=== PATIENT | female | born 1980 | race Caucasian/White ===

== ENCOUNTER 2017-06-16 18:06 | Emergency (ER) | payer MEDICAID ==
[~2017-06-16] VITALS: Ht 170.2 cm; Wt 90.7 kg
[2017-06-16 18:46] VITALS: Ht 170.2 cm; Wt 90.7 kg
[2017-06-16 21:12] VITALS: BP 113/68
== END 2017-06-16 21:58 | disposition home or self-care (01) ==
LOC: ED 18:06
DX: J20.9 Acute bronchitis, unspecified (principal)